=== PATIENT | male | born 1990 | race Caucasian/White ===

== ENCOUNTER 2019-08-14 09:00 | Emergency (ER) | payer MEDICAID, OTHER ==
[2019-08-14] MEDS ORDERED: HYDROmorphone 1 MG/ML Syringe IVPUSH ONE ×2 (09:21→10:42)
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
[2019-08-14 09:48] LABS: ANION GAP 16.1 mmol/L (5-15); CHLORIDE,CL 103 mmol/L (98-115); SODIUM,NA 143 mmol/L (136-145)
[2019-08-14] MEDS ORDERED: Clindamycin Phosphate 900 MG/6 ML SDV IV ONE (09:51)
[2019-08-14] MEDS ORDERED: Clindamycin Phosphate 600 MG in Dextrose 5% in Water 50 ML IV ONE ×2 (09:51)
[2019-08-14] MEDS ORDERED: Diphtheria,Pertussis(Acell),Tetanus Vaccine 0.5 ML SDV IM ONE (09:59)
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
== END 2019-08-14 10:59 ==
LOC: KA.ED 09:00
DX: S91.144A Puncture wound with foreign body of right lesser toe(s) without damage to nail, initial encounter (principal); Z23 Encounter for immunization; Z88.0 Allergy status to penicillin; W33.01XA Accidental discharge of shotgun, initial encounter; Y92.89 Other specified places as the place of occurrence of the external cause; Y93.89 Activity, other specified
CPT/HCPCS: 73630-RT; 80048; 85025; 90471; 90715; 96365; 96375; 96376; 99283; 99285-25; J1170; J3490